=== PATIENT | female | born 1990 | race American Indian/Alaskan Native ===

== ENCOUNTER 2017-12-04 16:33 | Emergency (ER) | payer MEDICAID ==
[~2017-12-04 16:33] MED LIST: QUELICIN IV ONE; VERSED IV NR; XYLOCAINE CARDIAC IV ONE
--- NOTE | 2017-12-04 16:49 | Emergency Department Report ---
HPI - General Chief Complaint: Altered Mental Status Time Seen by Provider: 12/04/17 16:43 - HPI HPI: Room 20 The patient is a 27-year-old female presenting with the chief complaint of unresponsiveness. Per EMS the patient is approximately 2 weeks . Hemostasis the patient complained of a headache earlier in the day (time unknown ). EMS reports the patient told family she was going to lay down and sleep. Just prior to arrival family was unable to awaken the patient and EMS was called. Upon arrival to the ED the patient was found to have a severely decreased gag reflex, a disconjugate gaze and was generally unresponsive; subsequently, the decision to intubate the patient using RSI was made. 18:04 HPI update The patient's cousin has arrived and states that the patient began complaining of headache earlier this morning at approximately 06:00. Family told the patient to lay down and rest. At approximately 13:00 family noticed that the patient appeared lethargic was not responding to her baby's cry. The patient's cousin was called and when she returned home at approximately 15:00 she found the patient lethargic and EMS was called Location: Mental state Duration: [See above] Quality: Unresponsive Severity: Severe Modifying factors: [see above] Context: [see above] Mode of transportation: [not driving] ED Past Medical Hx - Past Medical History Additional medical history: Unknown - Surgical History Additional Surgical History: Unknown - Family History Family history: no significant - Social History Smoking Status: Unknown if ever smoked ED Review of Systems ROS: Stated complaint: AMS Other details as noted in HPI Comment: Unobtainable due to pts medical conditions Physical Exam - Physical Exam Vital Signs: Vital Signs 12/04/17 16:36 Pulse Rate 109 H Blood Pressure 155/110 O2 Sat by Pulse 98 Oximetry Physical Exam: GENERAL: The patient is well-developed well-nourished female lying on stretcher grossly obtunded. [] HEENT: Normocephalic. Disconjugate gaze. Patient has moist mucous membranes. NECK: Supple. Trachea midline CHEST/LUNGS: Clear to auscultation. There is no respiratory distress noted. HEART/CARDIOVASCULAR: Regular. There is no tachycardia. There is no gallop rub or murmur. ABDOMEN: Abdomen is soft, nontender. Patient has normal bowel sounds. There is no abdominal distention. SKIN: There is no rash. There is no edema. There is no diaphoresis. NEURO: The patient is grossly obtunded. Severely decreased gag reflex. Disconjugate gaze. MUSCULOSKELETAL: There is no evidence of acute injury. ED Course Vital Signs 12/04/17 16:36 Pulse Rate 109 H Blood Pressure 155/110 O2 Sat by Pulse 98 Oximetry - Consultations Consultation #1: 12/04/17 17:05 [facility] transfer line called 12/04/17 17:19 Case discussed with [place] physician Dr. Blanton - EJ/Peripheral Line Neck L Time Out Performed: No Indications: multiple IV sites needed Skin Cleansed in Sterile Fashion: Yes Size: 20 Dressing Placed: Tegaderm Patient Tolerated Procedure: no complications - Intubation Time Out Performed: No Sedative: Versed Mg Given: 5 Paralytic: Succinylcholine Mg Given: 100 Laryngoscope: Vishnu Size: 3 ET Tube Size: 7 Tube Secured Depth (cm): 21 Tube Secured Location: lips Tube Placement Confirmation: visualized tube passing t, equal breath sounds bilat, no breath sounds over epi, confirmation by capnometr Patient Tolerated Procedure: well, no complications Intubation Complications: none Additional Comments: Lidocaine 1 mg IV is also used during RSI ED Medical Decision Making - EKG Data -: EKG Interpreted by Me EKG shows normal: sinus rhythm Rate: normal - EKG Data When compared to previous EKG there are: previous EKG unavailable Interpretation: nonspecific ST-T wave toby (T-wave inversion in lead 3) - Radiology Data Radiology results: report reviewed (CT head), image reviewed (CT head, chest x- ray) interpreted by me: Chest x-ray-the ET tube in place. No pneumothorax [facility] [address] [place] [address] Cat Scan Report Signed Patient: KRISTIN PETERSON MR#: [id number] : Acct:[id number] Age/Sex: 27 / F ADM Date: 12/04/17 Loc: ED Attending Dr: Ordering Physician: VAMSHI LANDA MD Date of Service: 12/04/17 Procedure(s): CT head/brain wo con Accession Number(s): [id number] cc: VAMSHI LANDA MD FINAL REPORT EXAM: CT HEAD/BRAIN WO CON HISTORY: unresponsive TECHNIQUE: CT head without contrast PRIORS: None. FINDINGS: there are 2 large left frontal acute parenchymal hemorrhages measuring approximately 5.8 by 3.2 centimeters and 3.2 x 2.9 centimeters. There is subarachnoid extension. There is a smaller right frontal hemorrhage near the convexity measuring 1.2 x 0.68 centimeters. There is mass effect throughout with crowding of sulci and compression of the left lateral ventricle. There is some extension of the left hemorrhage into the frontal horn of the left lateral ventricle. There is left to right midline shift measuring 0.6 centimeters. Basal cisterns do not appear effaced at this time. IMPRESSION: Two large left frontal parenchymal hemorrhages with a smaller right parenchymal hemorrhage. Subarachnoid extension and small extension into the left lateral ventricle anterior horn Mass effect with left to right midline shift Findings were discussed with 5:12 p.m. EST on December 04, 2017 Transcribed By: SYDNIE Dictated By: NEMESIO STEVENS MD Electronically Authenticated By: NEMESIO STEVENS MD Signed Date/Time: 12/04/171713 DD/DT : 12/04/171713 TD/TT: 12/04/171713 - Differential Diagnosis ICH, intracranial mass, Shehan's syndrome Critical Care Time: Yes Critical care time in (mins) excluding proc time.: 35 Critical care attestation.: If time is entered above; I have spent that time in minutes in the direct care of this critically ill patient, excluding procedure time. ED Disposition Clinical Impression: Altered mental status, Intracranial hemorrhage Disposition: DC/TX-70 ANOTHER TYPE HLTHCARE Is pt being admited?: No Does the pt Need Aspirin: No Condition: Serious Time of Disposition: 17:24 (awaiting transport)
[2017-12-04] MEDS ORDERED: KEPPRA 1,000 MG/NS 0.75% 100ML 1,000 MG/100 ML BAG IV ONE (17:04)
[2017-12-04] MEDS ORDERED: MAGNESIUM SULFATE 2GM/50ML 2 GM/50 ML BAG IV ONE (17:18)
--- NOTE | 2017-12-04 17:19 | Cat Scan Report ---
FINAL REPORT EXAM: CT HEAD/BRAIN WO CON HISTORY: unresponsive TECHNIQUE: CT head without contrast PRIORS: None. FINDINGS: there are 2 large left frontal acute parenchymal hemorrhages measuring approximately 5.8 by 3.2 centimeters and 3.2 x 2.9 centimeters. There is subarachnoid extension. There is a smaller right frontal hemorrhage near the convexity measuring 1.2 x 0.68 centimeters. There is mass effect throughout with crowding of sulci and compression of the left lateral ventricle. There is some extension of the left hemorrhage into the frontal horn of the left lateral ventricle. There is left to right midline shift measuring 0.6 centimeters. Basal cisterns do not appear effaced at this time. IMPRESSION: Two large left frontal parenchymal hemorrhages with a smaller right parenchymal hemorrhage. Subarachnoid extension and small extension into the left lateral ventricle anterior horn Mass effect with left to right midline shift Findings were discussed with 5:12 p.m. EST on December 04, 2017
[2017-12-04] MEDS ORDERED: MAGNESIUM SULFATE 4GM/100ML 4 GM/100 ML BAG IV ONE (17:20)
[2017-12-04] MEDS ORDERED: MAGNESIUM SULFATE 2GM/50ML 4 GM/100 ML BAG IV ONE (17:37)
[2017-12-04 17:57] VITALS: BP 121/77
[2017-12-04 17:58] LABS: Bilirubin,Urine NEG (Negative); Blood,Urine MOD (Negative); Color,Urine Straw (Yellow); Protein,Urine <15 mg/dL mg/dL (Negative); Urobilinogen,Urine < 2.0 mg/dL (<2.0); WBC,Urine < 1.0 /HPF (0.0-6.0)
[2017-12-04] MEDS ORDERED: fentaNYL DRIP Premix 2,000 MCG/100 ML BAG IV SCH (18:00)
[2017-12-04] MEDS ORDERED: CARDENE 50 MG in NACL 0.9% 250ML 230 ML IV SCH (18:00)
[2017-12-04] MEDS ORDERED: VERSED IV NR ×2 (18:00)
[2017-12-04 18:06] LABS: Amphetamine Screen,Urine PRESUMPTIVE NEGATIVE; Cannabinoid Screen,Urine PRESUMPTIVE NEGATIVE; Cocaine Screen,Urine PRESUMPTIVE NEGATIVE; Methadone Screen,Urine PRESUMPTIVE NEGATIVE; Opiate Screen,Urine PRESUMPTIVE NEGATIVE
[2017-12-04 18:18] LABS: Benzodiazepines Screen,Urine PRESUMPTIVE POSITIVE
--- NOTE | 2017-12-04 19:07 | XRay Report ---
FINAL REPORT EXAM: XR CHEST 1V AP HISTORY: unresponsive, status post intubation TECHNIQUE: upright single view chest PRIORS: None. FINDINGS: Cardiac and mediastinal contours are unremarkable. No focal pulmonary infiltrate is identified. No pleural fluid collection seen. Pulmonary vasculature is unremarkable. ET tube present. Tip is in satisfactory position approximately 3 centimeters above the efrem. IMPRESSION: ET tube in satisfactory position No acute pulmonary abnormality identified
[2017-12-04] MEDS ORDERED: QUELICIN ONE (23:00)
[2017-12-04] MEDS ORDERED: XYLOCAINE CARDIAC IV ONE (23:00)
[2017-12-04] MEDS ORDERED: VERSED ONE (23:00)
== END 2017-12-04 18:30 | disposition other institution (70) ==
LOC: ED 16:33
DX: O99.43 Diseases of the circulatory system complicating the puerperium (principal); I62.9 Nontraumatic intracranial hemorrhage, unspecified; R53.83 Other fatigue
CPT/HCPCS: 31500; 36569; 70450; 71045; 80307; 81001; 82962; 93005; 93010; 96365; 96375; 99291; J0330; J1953; J2001; J2250; J3010; J3475; J7050; 94002